=== PATIENT | male | born 1960 | race Caucasian/White ===

== ENCOUNTER → 2024-02-14 11:49 | Outpatient (REF) | payer OTHER, SELFPAY | LOC: HWRAD 11:49 | PROVIDERS: ATTENDING PHYSICIAN Family Medicine | DX: R93.89 Abnormal findings on diagnostic imaging of other specified body structures (principal) | CPT/HCPCS: 71046 ==

== ENCOUNTER → 2024-03-08 13:43 | Outpatient (REF) | payer OTHER, SELFPAY | LOC: PAVMRI 13:43 | PROVIDERS: ATTENDING PHYSICIAN Anesthesiology Pain Medicine; FAMILY PHYSICIAN Family Medicine | DX: M25.511 Pain in right shoulder (principal) | CPT/HCPCS: 73223; A9575 ==

== ENCOUNTER → 2025-05-28 17:14 | Outpatient (REF) | payer OTHER, SELFPAY | LOC: PAVMRI 17:14 | PROVIDERS: ATTENDING PHYSICIAN Anesthesiology Pain Medicine; FAMILY PHYSICIAN Family Medicine | DX: M54.12 Radiculopathy, cervical region (principal) | CPT/HCPCS: 72141 ==